=== PATIENT | female | born 1980 | race African-American/Black ===

== ENCOUNTER 2022-10-04 00:01 | Emergency (ER) | payer MEDICAID ==
[~2022-10-04] VITALS: Ht 182.9 cm; Wt 122.0 kg
[2022-10-04] MEDS ORDERED: ACETAMINOPHEN 500MG TABLET PO ONE (02:15)
[2022-10-04] MEDS ORDERED: CEPH500C2 MT (05:35)
[2022-10-04] MEDS ORDERED: ACET325C7 PO (05:35)
[2022-10-04 06:05] VITALS: BP 120/68
== END 2022-10-04 06:07 | disposition home or self-care (01) ==
LOC: ER 01:39
DX: O26.893 Other specified pregnancy related conditions, third trimester (principal); L02.412 Cutaneous abscess of left axilla; Z3A.36 36 weeks gestation of pregnancy
CPT/HCPCS: 76641; 99284